=== PATIENT | female | born 1975 | race Two or more races ===

== ENCOUNTER 2023-05-09 23:29 | Emergency (ER) | payer OTHER ==
[~2023-05-09] VITALS: Ht 167.6 cm; Wt 92.0 kg
[~2023-05-09 23:29] MED LIST: htn med PO
[2023-05-10 01:56] VITALS: BP 135/89; PULSE 89; RESP 17; TEMP 97.3
== END 2023-05-10 01:59 | disposition home or self-care (01) ==
LOC: EMS 23:30
DX: R04.0 Epistaxis (principal); I10 Essential (primary) hypertension; Z98.890 Other specified postprocedural states
CPT/HCPCS: 30901; 99284; Z7502

== ENCOUNTER 2023-05-11 12:14 | Emergency (ER) | payer OTHER ==
[~2023-05-11] VITALS: Ht 165.1 cm; Wt 81.8 kg
[2023-05-11 12:27] VITALS: TEMP 98.9
[2023-05-11] MEDS ORDERED: PHENYLEPHRINE HCL 0.25% 15 ML NASAL SPRAY NASAL ONE (15:00)
[2023-05-11 17:28] VITALS: BP 114/60; PULSE 72; RESP 18
== END 2023-05-11 17:33 | disposition home or self-care (01) ==
LOC: EMS 12:47
DX: S00.83XA Contusion of other part of head, initial encounter (principal); R04.0 Epistaxis; I10 Essential (primary) hypertension; Z98.890 Other specified postprocedural states; X58.XXXA Exposure to other specified factors, initial encounter; Y93.89 Activity, other specified; Y92.89 Other specified places as the place of occurrence of the external cause; Y99.8 Other external cause status
CPT/HCPCS: 70486; 99284; Z7502; Z7610

== ENCOUNTER 2023-05-31 19:24 | Emergency (ER) | payer OTHER ==
[~2023-05-31] VITALS: Ht 170.2 cm; Wt 82.0 kg
[2023-05-31 21:00] LABS: BASOPHILS % (AUTO) 0.1 % (0.0-2.0); EOSINOPHILS % (AUTO) 0.1 % (1.0-6.0); HEMATOCRIT 39.4 % (36-46); HEMOGLOBIN 13.2 g/dL (12.0-16.0); LYMPHOCYTES % (AUTO) 7.9 % (22.0-44.0); MEAN CORPUSCULAR HEMOGLOBIN 29.6 pg (26.0-34.0); MEAN CORPUSCULAR HGB CONC 33.5 G/dL (31.0-37.0); MEAN CORPUSCULAR VOLUME 88 fL (80-100); MONOCYTES # (AUTO) 0.7 K/uL (0.1-1.0); MONOCYTES % (AUTO) 5.6 % (2.0-9.0); NEUTROPHILS # (AUTO) 11.2 K/uL (1.8-7.7); PLATELET COUNT (AUTO) 235 K/uL (150-450); RED BLOOD CELL COUNT(AUTO) 4.46 MIL/uL (4.00-5.20)
[2023-05-31] MEDS ORDERED: ONDANSETRON HCL 4 MG/2 ML VIAL IVP ONE (21:00)
[2023-05-31] MEDS ORDERED: SODIUM CHLORIDE 0.9% 1,000 ML IV ONE (21:00)
[2023-05-31 21:05] LABS: NEUTROPHILS % (AUTO) 86.3 % (40.0-70.0)
[2023-05-31 21:09] LABS: PH,URINE DRUG SCREEN 6.5 (5.0-8.0)
[2023-05-31 21:11] LABS: ANION GAP 3 mmol/L (8-16); CALCIUM, TOTAL 8.1 mg/dL (8.8-10.5); CARBON DIOXIDE 34 mmol/L (22-29); CHLORIDE 88 mmol/L (98-107); CREATININE 1.05 mg/dL (0.60-1.30); GLOMERULAR FILTR. RATE CALC 56 mL/min (>60); GLUCOSE,RANDOM 101 mg/dL (70-110); POTASSIUM 3.3 mmol/L (3.5-5.1); SODIUM SERUM 125 mmol/L (136-145); UREA NITROGEN, BLOOD 22 mg/dL (7-18)
[2023-05-31 21:16] LABS: AMPHET/METH SCREEN,URINE NEGATIVE (NEGATIVE); BARBITURATE SCREEN, URINE NEGATIVE (NEGATIVE); BENZODIAZEPINES SCREEN,URINE NEGATIVE (NEGATIVE); CANNABINOID SCREEN,URINE NEGATIVE (NEGATIVE); COCAINE SCREEN,URINE NEGATIVE (NEGATIVE); METHADONE SCREEN, URINE NEGATIVE (NEGATIVE); OPIATE SCREEN,URINE NEGATIVE (NEGATIVE); PHENCYCLIDINE SCREEN,URINE NEGATIVE (NEGATIVE)
[2023-05-31 21:18] LABS: ALCOHOL, URINE DRUG SCREEN NEGATIVE (NEGATIVE)
[2023-05-31 21:18] LABS: ALANINE AMINOTRANSFERASE 52 U/L (12-78); ALCOHOL, BLOOD (SERUM) < 3 mg/dL (0-10); ALKALINE PHOSPHATASE 69 U/L (46-116); ASPARTATE AMINOTRANSFERASE 30 U/L (15-37); BILIRUBIN,TOTAL 0.5 mg/dL (0.1-1.0); LIPASE 60 U/L (16-77); TOTAL PROTEIN, SERUM 6.2 g/dL (6.4-8.2)
[2023-05-31 21:19] LABS: TROPONIN I-HIGH SENSITIVITY 22 ng/L (<51)
[2023-05-31] MEDS ORDERED: FAMOTIDINE 20 MG/2 ML VIAL IVP ONE (23:30)
[2023-06-01 00:55] LABS: COVID AG,FIA SOURCE NASAL SWAB
[2023-06-01 01:02] LABS: APPEARANCE,URINE CLEAR (CLEAR); BILIRUBIN,URINE NEGATIVE (NEGATIVE); COLOR,URINE COLORLESS (YELLOW); GLUCOSE, URINE (UA) NEGATIVE (NEGATIVE); KETONES,URINE NEGATIVE (NEGATIVE); LEUKOCYTE ESTERASE ,URINE NEGATIVE (NEGATIVE); NITRATE,URINE NEGATIVE (NEGATIVE); OCCULT BLOOD,URINE NEGATIVE (NEGATIVE); PROTEIN,URINE NEGATIVE (NEGATIVE); SPECIFIC GRAVITIY, URINE 1.009 (1.003-1.030); UROBILINOGEN,URINE <=1.0 mg/dL (<=1.0)
[2023-06-01 01:19] VITALS: BP 130/100; PULSE 69; RESP 17; TEMP 97.6
[2023-06-01 01:20] LABS: SARS-COV2 (COVID) ANTIGEN,FIA Negative (Negative)
[2023-06-01] MEDS ORDERED: POLY17PO PO (01:43)
== END 2023-06-01 02:00 | disposition home or self-care (01) ==
LOC: EMS 19:25
DX: K59.00 Constipation, unspecified (principal); E87.1 Hypo-osmolality and hyponatremia; R10.13 Epigastric pain; I10 Essential (primary) hypertension; Z98.890 Other specified postprocedural states
CPT/HCPCS: 80053; 81003; 83690; 84484; 84703; 85025; 36415; 74176; 76705; 99285; 93005; 96361; 96374; 96375; 80307; 87426; G0480; J3490; J2405; J7030